=== PATIENT | female | born 2000 | race Caucasian/White ===

== ENCOUNTER 2021-10-09 19:12 | Emergency (ER) | payer MEDICAID ==
[~2021-10-09] VITALS: Ht 170.2 cm; Wt 99.1 kg
[~2021-10-09 19:12] MED LIST: DIPH-423 PO
[2021-10-09 19:23] VITALS: BP 102/63
[2021-10-09] MEDS ORDERED: cephalexin 250mg capsule PO ONE (20:00)
[2021-10-09] MEDS ORDERED: clotrimazole topical cream 15gm tube TP SCH (20:00)
[2021-10-09] MEDS ORDERED: CLOT15CR73 TP (20:03)
[2021-10-09] MEDS ORDERED: CEPH-585 PO (20:03)
== END 2021-10-09 20:36 | disposition home or self-care (01) ==
LOC: ER 19:13
DX: B37.9 Candidiasis, unspecified (principal)
CPT/HCPCS: 99283

== ENCOUNTER 2024-01-31 08:19 | Outpatient (CLI) | payer MEDICAID ==
[2024-01-31] VITALS (22 sets, daily range): BP systolic 94–120; BP diastolic 55–81; PULSE 66–94
[~2024-01-31 08:19] MED LIST changes: +CLOT15CR73 TP
== END 2024-01-31 23:59 | disposition home or self-care (01) ==
LOC: CARD DIAG 08:19
PROVIDERS: ATTEND Physician Assistant
DX: R55 Syncope and collapse (principal); R00.2 Palpitations
CPT/HCPCS: 93660

== ENCOUNTER 2024-05-25 19:26 | Emergency (ER) | payer MEDICAID ==
[~2024-05-25] VITALS: Ht 170.2 cm; Wt 71.6 kg
[2024-05-25 19:34] VITALS: O2SAT 99
[2024-05-25] MEDS ORDERED: AMOX500C2 PO (20:09)
[2024-05-25 20:23] VITALS: BP 107/72; PULSE 90; RESP 18; TEMP 98.2
== END 2024-05-25 20:27 | disposition home or self-care (01) ==
LOC: ER 19:26
DX: J03.90 Acute tonsillitis, unspecified (principal); Z79.899 Other long term (current) drug therapy
CPT/HCPCS: 99283